=== PATIENT | female | born 1995 | race Caucasian/White ===

== ENCOUNTER 2019-02-25 04:27 | Emergency (ER) | payer SELFPAY ==
[~2019-02-25] VITALS: Ht 172.7 cm; Wt 61.2 kg
[2019-02-25 04:43] VITALS: BP 149/110
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
[2019-02-25] MEDS ORDERED: Haloperidol 5mg/ml Inj IM ONE (04:45)
[2019-02-25] MEDS ORDERED: LORazepam Inj 2mg/ml 1ml IM ONE (04:45)
--- NOTE | 2019-02-25 05:34 | NUR ---
ER Nurse Note: Pt calm, asleep but easy to awaken. All orders completed per ERMD orders. SLIV LT hand, patent. All belongings accounted and placed in locker one. All safety measures met; will continue to monitor.
[2019-02-25 05:38] LABS: BASOPHILS % (AUTO) 0.9 % (0.0-2.0); HEMATOCRIT 36.5 % (37.0-47.0); HEMOGLOBIN 12.6 G/DL (12.0-16.0); LYMPHOCYTES % (AUTO) 35.8 % (20.0-45.0); MEAN CORPUSCULAR VOLUME 90 FL (80-99); NEUTROPHILS % (AUTO) 49.2 % (45.0-75.0); PLATELET COUNT 270 K/UL (150-450); RED BLOOD COUNT 4.06 M/UL (4.20-5.40); RED CELL DISTRIBUTION WIDTH 11.6 % (11.6-14.8); WHITE BLOOD COUNT 8.2 K/UL (4.8-10.8)
[2019-02-25 05:42] LABS: ANION GAP 16 mmol/L (5-15); BLOOD UREA NITROGEN 12 mg/dL (7-18); CALCIUM 8.7 MG/DL (8.5-10.1); CARBON DIOXIDE 23 MMOL/L (21-32); CHLORIDE 105 MMOL/L (98-107); CREATININE 1.3 MG/DL (0.55-1.30); POTASSIUM 2.8 MMOL/L (3.5-5.1); SODIUM 143 MMOL/L (136-145)
[2019-02-25 05:46] LABS: ALANINE AMINOTRANSFERASE 20 U/L (12-78); ALBUMIN 4.1 G/DL (3.4-5.0); ALBUMIN/GLOBULIN RATIO 1.6 (1.0-2.7); ALKALINE PHOSPHATASE 65 U/L (46-116); ASPARTATE AMINO TRANSFERASE 16 U/L (15-37); BILIRUBIN,TOTAL 0.6 MG/DL (0.2-1.0)
--- NOTE | 2019-02-25 06:20 | NUR ---
ER Nurse Note: Pt asleep, calm, no signs of distress. Meal tray ordered. All safety measures met; will continue to montior.
--- NOTE | 2019-02-25 07:20 | NUR ---
ED Nurse Note: REPORT RECEIVED FROM JOHNNA REICH. PT SLEEPING PEACEFULLY IN BED IN NAD. PT EASILY AROUSABLE TO LIGHT TOUCH. VSS. PT REMAINS OFF OF RESTRAINTS.
[2019-02-25 07:22] VITALS: BP 109/71
--- NOTE | 2019-02-25 08:10 | NUR ---
ED Nurse Note: [facility] OUT OF STOCK IN [facility]. PHARMACY CALLED FOR REFILL.
--- NOTE | 2019-02-25 08:20 | NUR ---
ED Nurse Note: PT REMAINS SLEEPING PEACEFULLY IN BED IN NAD. EASILY AROUSABLE TO LIGHT TOUCH. PT REMAINS UNRESTRAINED.
--- NOTE | 2019-02-25 08:57 | NUR ---
ED Nurse Note: BREAKFAST TRAY PROVIDED FOR PT.
--- NOTE | 2019-02-25 09:20 | NUR ---
ED Nurse Note: PT REMAINS SLEEPING PEACEFULLY IN BED IN NAD. VSS. EASILY AROUSABLE TO LIGHT TOUCH. CALM AND COOPERATIVE.
--- NOTE | 2019-02-25 10:20 | NUR ---
ED Nurse Note: PT REMAINS SLEEPING PEACEFULLY IN BED IN NAD. VSS. EASILY AROUSABLE TO LIGHT TOUCH. CALM AND COOPERATIVE.
--- NOTE | 2019-02-25 11:20 | NUR ---
ED Nurse Note: PT REMAINS SLEEPING PEACEFULLY IN BED IN NAD. EASILY AROUSABLE TO LIGHT TOUCH. CALM AND COOPERATIVE.
[2019-02-25 11:22] VITALS: BP 112/76
--- NOTE | 2019-02-25 11:50 | NUR ---
ED Nurse Note: LUNCH TRAY PROVIDED FOR PT.
--- NOTE | 2019-02-25 12:20 | NUR ---
ED Nurse Note: PT REMAINS SLEEPING PEACEFULLY IN BED IN NAD. EASILY AROUSABLE TO LIGHT TOUCH. CALM AND COOPERATIVE.
--- NOTE | 2019-02-25 13:20 | NUR ---
ED Nurse Note: PT REMAINS SLEEPING PEACEFULLY IN BED IN NAD. EASILY AROUSABLE TO LIGHT TOUCH. CALM AND COOPERATIVE.
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
[2019-02-25 13:57] VITALS: BP 118/80
== END 2019-02-25 13:58 | disposition home or self-care (01) ==
LOC: EDBD 04:27 → EMR 04:49
DX: F23 Brief psychotic disorder (principal); F15.10 Other stimulant abuse, uncomplicated
CPT/HCPCS: 36415; 80053; 80307; 81025; 85025; 86703; 96372; 99284; G0480; J1630; 80329; J8499